=== PATIENT | female | born 1935 | race Caucasian/White ===

== ENCOUNTER 2016-12-08 17:08 | Emergency (ER) | payer MEDICARE, BC ==
[2016-12-08 13:16] LABS: BASOPHILS 0.3 %; BASOPHILS ABSOLUTE 0.05 10/3/uL (0.0-0.16); EOSINOPHILS ABSOLUTE 0.15 10/3/uL (0.0-0.53); HEMATOCRIT 35.2 % (36.0-48.0); HEMOGLOBIN 11.6 g/dL (12.0-16.0); IMMATURE GRANULOCYTES 0.3 %; IMMATURE GRANULOCYTES ABSOLUTE 0.04 10/3/uL (0.0-0.11); LYMPHOCYTES 18.8 %; LYMPHOCYTES ABSOLUTE 2.95 10/3/uL (0.67-4.30); MEAN CORPUSCULAR HEMOGLOB 30.8 pg (26.0-34.0); MONOCYTES 4.1 %; MONOCYTES ABSOLUTE 0.65 10/3/uL (0.21-1.20); NEUTROPHILS 75.5 %; NEUTROPHILS ABSOLUTE 11.84 10/3/uL (2.02-8.40); PLATELET COUNT 297 10/3/uL (150-400); RBC DISTRIBUTION WIDTH 13.6 % (12.0-16.0); RED CELL COUNT 3.77 10/6/uL (4.0-5.6); WHITE BLOOD CELLS 15.7 10/3/uL (4.5-10.5)
[2016-12-08 13:17] LABS: MANUAL DIFF NO %; MEAN CORPUSCULAR VOLUME 93.4 fL (80-100)
[2016-12-08 13:23] LABS: INTERNATIONAL NORMAL RATI 1.9 UNITS (-); PARTIAL THROMBO TIME 29.4 SEC (22.5-37.2)
[2016-12-08 13:25] LABS: PROTIME (NOT ORD) 21.4 SEC (12.0-14.5)
[2016-12-08 13:36] LABS: CALCIUM, SERUM 10.4 MG/DL (8.5-10.4); CHEST PAIN PROFILE TAT 0 Hrs 24 Mins; CHLORIDE, SERUM 106 MMOL/L (96-112); CO2 (CARBON DIOXIDE) 27 MMOL/L (24-34); CREATININE 1.32 MG/DL (0.55-1.02); GFR AFRICAN AMERICAN 43 ML/MIN (>=60); GFR NON AFRICAN AMERICAN 37 ML/MIN (>=60); GLUCOSE, SERUM 116 MG/DL (60-99); POTASSIUM, SERUM 4.1 MMOL/L (3.5-5.3); SODIUM, SERUM 143 MMOL/L (135-148); TROPONIN I <0.02 NG/ML (<0.05)
[2016-12-08 13:41] LABS: BUN (BLOOD UREA NITROGEN) 28 MG/DL (6-23)
[~2016-12-08 17:08] MED LIST: *UNABLE1; APRES25 PO; ARICEPT PO; ARICEPT10 PO; ASAB PO; ATEN100 PO; BLOOD PRESSURE RX PO; CALTRA600D PO; CALTRAT600 PO; IMDUR60 PO; ISOSORBIDE PO; LEVOTHYROXIN25 MCG PO; LOP25 PO; MAPAP PO; METOPROLOL PO; NAMENDA10 MG PO; NAMENXR21 PO; NAMENXR28 PO; NORV25 PO; NORV5 PO; NORVASC PO; PRIN20 PO; SYN.025B PO; SYNTHROID PO; TORATAB PO; TYLENOL ARTH650 MG PO; V5 PO; VITAMIN D31000 UNIT PO; VITAMIN D400 UNI1 PO; ZOFRAN4 PO; ZYRTEC ALLGY10 MG PO; [UNRECOGNIZED DRUG - REMARK] PO
== END 2016-12-08 18:48 | disposition home or self-care (01) ==
LOC: ER 17:08
PROVIDERS: Emergency Medicine
DX: R55 Syncope and collapse (principal); Z88.8 Allergy status to other drugs, medicaments and biological substances; Z79.899 Other long term (current) drug therapy; Z79.82 Long term (current) use of aspirin
CPT/HCPCS: 70450; 71020; 80048; 83735; 84484; 85025; 85610; 85730; 93005; 99285